=== PATIENT | male | born 1975 ===

== ENCOUNTER 2017-08-19 16:00 | Emergency (ER) | payer OTHER ==
[2017-08-19] MEDS ORDERED: Acetaminophen/oxyCODONE 325-5 MG Tab PO ONE (16:44)
--- NOTE | 2017-08-19 18:22 | EDM.PDOC ---
ED HPI GENERAL MEDICAL PROBLEM - General Chief Complaint: Lower Extremity Injury/Pain Stated Complaint: LEFT KNEE INJURY Time Seen by Provider: 08/19/17 16:35 Source of Information: Reports: Patient History Limitations: Reports: No Limitations - History of Present Illness INITIAL COMMENTS - FREE TEXT/NARRATIVE: 42-year-old male presents for evaluation and treatment of left knee pain. Patient reports he's been experiencing left knee pain for the past couple weeks. He states today he was carrying a ladder when he heard a loud pop and felt it immediate pain to the left knee. He states he can no longer bear weight due to the pain. Identifies pain to the lateral aspect of the left knee as well as across the tibial plateau. He denies any current numbness or tingling, he states he had some earlier. No swelling or bruising. No previous trauma to the knee. Onset: Today Location: Reports: Lower Extremity, Left Left Knee Pain Score (Numeric/FACES): 10 - Related Data Allergies Allergy/AdvReac Type Severity Reaction Status Date / Time No Known Allergies Allergy Verified 08/19/17 16:13 Home Meds: Home Meds Acetaminophen/oxyCODONE [Percocet 325-5 MG] 1 tab PO Q6HR PRN #20 tab 08/19/17 [ Rx] Past Medical History HEENT History: Reports: Impaired Vision - Past Surgical History Musculoskeletal Surgical History: Reports: Other (See Below) Other Musculoskeletal Surgeries/Procedures:: bilateral ankle surgery Social & Family History - Tobacco Use Smoking Status *Q: Former Smoker Used Tobacco, but Quit: Yes Month/Year Tobacco Last Used: 5 years ago - Caffeine Use Caffeine Use: Reports: Coffee - Recreational Drug Use Recreational Drug Use: No Review of Systems - Review of Systems Review Of Systems: See Below Musculoskeletal: Reports: Joint Pain (left). Denies: Joint Swelling Skin: Denies: Bruising, Erythema, Wound Neurological: Reports: Difficulty Walking. Denies: Numbness, Tingling ED EXAM, GENERAL - Physical Exam Exam: See Below Exam Limited By: No Limitations General Appearance: Alert, WD/WN, Moderate Distress, Thin Eye Exam: Bilateral Eye: Normal Inspection Respiratory/Chest: No Respiratory Distress Cardiovascular: Normal Peripheral Pulses, Regular Rate, Rhythm Peripheral Pulses: 2+: Posterior Tibial (L), Posterior Tibial (R), Dorsalis Pedis (L), Dorsalis Pedis (R) Extremities: Normal Inspection, Limited Range of Motion (unable to flex left knee > 90 degrees), Other (pain with valgus and varus stress testing, negative anterior and posterior drawer testing, unable to fully preform grind testing of the left knee due to significan pain). No: Redness Neurological: Alert, Oriented, Normal Cognition Psychiatric: Normal Affect, Normal Mood Skin Exam: Warm, Dry, Normal Color. No: Ecchymosis Course - Vital Signs Last Recorded V/S: Last Vital Signs Temp 37.1 C 08/19/17 16:08 Pulse 59 L 08/19/17 16:08 Resp 18 08/19/17 16:08 BP 143/92 H 08/19/17 16:08 Pulse Ox 97 08/19/17 16:08 - Orders/Labs/Meds Orders: Active Orders 24 hr Category Date Time Status Knee Min 4V Lt [CR] Stat Exams 08/19/17 16:44 Taken Meds: Medications Discontinued Medications Generic Name Dose Route Start Last Admin Trade Name Freq PRN Reason Stop Dose Admin Oxycodone/Acetaminophen 1 tab 08/19/17 16:44 08/19/17 16:56 Percocet 325-5 Mg PO 08/19/17 16:45 1 tab ONETIME ONE Administration - Radiology Interpretation Free Text/Narrative:: X-ray shows no acute fractures or dislocations to the left knee. Left knee: 4 views of the left knee were obtained. Comparison: No prior knee exam. No joint effusion is seen. Medial and lateral joint compartments are maintained in height. No acute fracture or other abnormality is seen. Impression: 1. No bony abnormality is appreciated on left knee exam. - Re-Assessments/Exams Free Text/Narrative Re-Assessment/Exam: 08/19/17 18:27 I reviewed the x-ray results with the patient. Pain improved with percocet. I will give him a referral to orthopedics and have him use utilize a brace and crutches. Medication as needed for pain. Discharge instructions as documented. Departure - Departure Time of Disposition: 18:28 Disposition: Home, Self-Care 01 Condition: Fair Clinical Impression: Left knee injury Qualifiers: Encounter type: initial encounter Qualified Code(s): S89.92XA - Unspecified injury of left lower leg, initial encounter - Discharge Information Prescriptions: Acetaminophen/oxyCODONE [Percocet 325-5 MG] 1 tab PO Q6HR PRN #20 tab PRN Reason: Pain Instructions: Knee Pain, [id number] Referrals: PCP,None [Primary Care Provider] - Forms: ED Department Discharge, ED Return to Work/School Form Additional Instructions: You were given medication the ER that can affect your ability to drive and operate machinery. Do not drive or operate machinery within 12 hours of taking prescription narcotic pain medication. Follow-up with orthopedics in 1-[address] Knox at the [facility]. Call [phone] to schedule with him. My also see Dr. Cowart at the [facility]. Call [phone] to schedule with him. Continue to ice the knee, 4 to 5 times a day for 10-15 minutes. Utilize the crutches and the knee immobilizer. Elevate the leg, above the level of the heart as much as you are able to. [id number]-[id number] Tylenol or Motrin as needed for pain relief. Do not take more than 4 g of Tylenol from all sources in 1 day. Do not take more than 3200 mg Motrin from all sources in 1 day. Percocet 1-2 tabs every 4-6 hours as needed for pain not relieved by Tylenol or Motrin. Percocet is habit-forming, recommend you take as few of these as needed control your pain. Do not drive or operate machinery within 12 hours of taking Percocet. please return to the er for symptoms change or worsen. note for work given. - My Orders Last 24 Hours: My Active Orders 08/19/17 16:44 Knee Min 4V Lt [CR] Stat - Assessment/Plan Last 24 Hours: My Active Orders 08/19/17 16:44 Knee Min 4V Lt [CR] Stat
--- NOTE | 2017-08-20 12:47 | CR ---
Left knee: Four views of the left knee were obtained. Comparison: No prior knee exam. No joint effusion is seen. Medial and lateral joint compartments are maintained in height. No acute fracture or other abnormality is seen. Impression: 1. No bony abnormality is appreciated on left knee exam. Diagnostic code #1
== END 2017-08-19 18:47 | disposition home or self-care (01) ==
LOC: JD.ED 16:00
DX: S89.92XA Unspecified injury of left lower leg, initial encounter (principal); X58.XXXA Exposure to other specified factors, initial encounter
CPT/HCPCS: 73564; 99283; A9270